=== PATIENT | female | born 1985 | race Caucasian/White ===

== ENCOUNTER 2017-03-10 18:24 | Emergency (ER) | payer OTHER ==
--- NOTE | ~2017-03-10 | CR58 ---
[facility] A Service [facility] RADIOLOGY TEXT RESULTS PATIENT: CAPRICE YOO LOCATION: SED : 87 UNIT #: [id number] AGE: [address]: OLIVER WEINER SEX: F ORDER DR: [id number] [place] [id number] E MR#: [id number] Acc #: [id number] NAME: CAPRICE YOO. : 1985 SEX: F STUDY DATE/TIME: 03/10/2017 19:17 UNIT: SED ROOM: STUDY DESCRIPTION: CR Cervical Spine 2 or 3 Views Attending Physician: Oliver Weiner A.P.R.N. Ordering Physician: Oliver Weiner A.P.R.N. Primary Care Physician: No Primary Care Physician MEDICAL IMAGING REPORT This report is preliminary unless electronic signature is present. EXAM Cervical series, 03/10/2017. INDICATIONS 31-year-old female with cervical pain, slipped and fell hit the right side of the face, neck pain on the right with swallowing. TECHNIQUE Frontal open-mouth odontoid and lateral views performed. COMPARISON No comparisons. FINDINGS Dens and lateral masses intact. There is reversal of the expected cervical curve but alignment is preserved and there is no acute fracture. Soft tissues unremarkable. No significant degenerative change. IMPRESSION 1. Negative. Dictated by... Bandar Henderson M.D. THIS IS AN ELECTRONICALLY VERIFIED REPORT Bandar Henderson M.D. at 03/11/2017 2:25 PM LUCINDA/yeyo TD: 03/11/2017 13:18 JOB #: [id number] MEDICAL IMAGING REPORT [facility] A Service of [facility] RADIOLOGY TEXT RESULTS PATIENT: CAPRICE YOO LOCATION: SED : [birth year] UNIT #: [id number] AGE: [address]: OLIVER WEINER SEX: F ORDER DR: Page 1 of 1
--- NOTE | ~2017-03-10 | CT101 ---
[facility]. [facility] A Service of [facility] RADIOLOGY TEXT RESULTS PATIENT: CAPRICE YOO LOCATION: SED : [birth year] UNIT #: [id number] AGE: [address]: OLIVER MIRANDA SEX: F ORDER DR: [id number] [address] [address] [id number] E MR#: [id number] Acc #: [id number] NAME: CAPRICE YOO : 1985 SEX: F STUDY DATE/TIME: 03/10/2017 19:16 UNIT: SED ROOM: STUDY DESCRIPTION: CT Maxillofacial Area Wo Cont Attending Physician: Oliver Miranda A.P.R.N. Ordering Physician: Oliver Miranda A.P.R.N. Primary Care Physician: No Primary Care Physician MEDICAL IMAGING REPORT This report is preliminary unless electronic signature is present. EXAM CT maxillofacial area without contrast. HISTORY Slipped and fell, hitting [place] on face, right sided lip abrasions with chipped tooth, right side upper maxilla right sided, neck sore with swallowing. TECHNIQUE CT of the facial bones performed. Bone, soft tissue windows reviewed. Coronal reconstructions performed. This CT exam was performed with one or more of the following radiation dose reduction techniques: automatic exposure control, adjustment of mA and/or kV according to patient size, and iterative reconstruction. FINDINGS The visualized portions of the brain are unremarkable. The intraorbital soft tissues are unremarkable. The visualized nasopharyngeal, oral pharyngeal, pharyngeal mucosal, retropharyngeal spaces are unremarkable. Larynx and visualized subglottic airway unremarkable. The visualized portions of thyroid, submandibular and parotid glands are unremarkable. A mildly enlarged right submandibular lymph node measuring 1 cm in short axis. It appears to have a fatty hilum and in the absence of risk factors, benign etiology is favored. The facial soft tissues notable for soft tissue swelling right paracentral mandibular region. No soft tissue defect is clearly seen. Correlate with exam. There is no subcutaneous air or radiodense foreign body. The visualized paranasal sinuses and mastoid air cells show small mucous retention cyst or polyp in the left maxillary sinus. Visualized bones of calvaria intact. Nasal bones intact. Nasal septum in midline. Ostiomeatal complexes patent. The orbital bony structures are unremarkable. Zygomas, zygomatic arches, pterygoid plates, maxillary sinus ledbetter intact. There is streak artifact STS. [facility] A Service of [facility] RADIOLOGY TEXT RESULTS PATIENT: CAPRICE YOO LOCATION: [facility] [place] [birth year] UNIT #: [id number] AGE: [address]: OLIVER MIRANDA SEX: F ORDER DR: from dental hardware. Patient's history states chipped tooth. I do not clearly see the affected tooth on this examination, but weight should be given the formal dental examination. The mandible is intact. The visualized cervical spine is unremarkable. IMPRESSION 1. The patient's history states a chipped tooth. I do not see the dental abnormality clearly on this examination. Please correlate with formal dental examination. Weight should be given formal exam. No facial bone fracture is seen. 2. There is soft tissue swelling in the right paracentral anterior mandibular region without soft tissue defect, subcutaneous radiopaque foreign body or subcutaneous air. 3. There is a single borderline enlarged 1 cm short-axis right submandibular lymph node. It displays a fatty hilum and in the absence of risk factors is favored to be benign/reactive in nature. Clinical followup recommended. 4. Small mucous retention cyst or polyp left maxillary sinus. Dictated by... Jac Yeager M.D. THIS IS AN ELECTRONICALLY VERIFIED REPORT Jac Yeager M.D. at 03/12/2017 2:44 PM DAVONTE/lex TD: 03/11/2017 13:50 JOB #: [id number] MEDICAL IMAGING REPORT Page 1 of 1
== END 2017-03-10 20:29 | disposition home or self-care (01) ==
LOC: SED 18:24
DX: S01.511A Laceration without foreign body of lip, initial encounter (principal); W01.0XXA Fall on same level from slipping, tripping and stumbling without subsequent striking against object, initial encounter; Z23 Encounter for immunization
CPT/HCPCS: 70486; 72040; 84703; 90471; 90715; 99284